=== PATIENT | male | born 1950 | race Asian ===

== ENCOUNTER 2022-04-17 12:23 | Emergency (ER) | payer MEDICARE ==
[2022-04-17 12:37] VITALS: BP 119/75
--- NOTE | 2022-04-17 13:12 | ED Physician Documentation ---
History of Present Illness - Stated complaint Stated Complaint: BLEEDING MALE - Chief complaint Chief Complaint: General - History obtained from History obtained from: Patient - Additonal information Additional information: 72-year-old gentleman presents accompanied by his . Last night he took some supplements and sildenafil for erectile dysfunction. He was in the shower and developed an erection and was toweling off when he noticed blood from the urethral meatus which has been a slow persistent ooze ever since. There is really no pain. No hematuria per se. Review of Systems Constitutional: reports: Reviewed and negative Cardiac: reports: Reviewed and negative Respiratory: reports: Reviewed and negative PD PAST MEDICAL HISTORY - Allergies Allergies/Adverse Reactions: Allergies Allergy/AdvReac Type Severity Reaction Status Date / Time No Known Drug Allergies Allergy Verified 04/17/22 12:33 PD ED PE NORMAL - Vitals Vital signs reviewed: Yes - General General: Alert and oriented X 3, No acute distress - Male Male : Other (He has a small tear at the inferior part of the external urethral meatus with a slow venous ooze. Its too small for consideration for primary repair per se.) - Neuro Neuro: Alert and oriented X 3, Normal speech Results - Vitals Vitals: Vital Signs - 24 hr 04/17/22 12:34 Temperature 36.6 C Heart Rate 75 Respiratory 16 Rate Blood Pressure 119/75 O2 Saturation 96 Oxygen O2 Source Room air Departure - Departure Disposition: 01 Home, Self Care Clinical Impression: Other injury of urethra, initial encounter Condition: Good Record reviewed to determine appropriate education?: Yes Comments: As we discussed, you have a small tear in the inferior part of what is known as your urethral meatus. This should heal fine and the bleeding should stop over the next couple of days. If you are having persistent symptoms beyond that timeframe reasonable to follow-up with a urologist closer to home but unlikely that will be necessary.
== END 2022-04-17 13:53 | disposition home or self-care (01) ==
LOC: ED 12:23
DX: N36.8 Other specified disorders of urethra (principal)
CPT/HCPCS: 99281; 99282